=== PATIENT | male | born 1975 | race Native Hawaiian/Other Pacific Islander ===

== ENCOUNTER 2019-05-01 10:26 | Outpatient (CLI) | payer OTHER | END 2019-05-01 20:31 | disposition home or self-care (01) | LOC: MRI 10:26 | DX: M54.12 Radiculopathy, cervical region (principal) ==

== ENCOUNTER 2019-07-08 08:56 | Day surgery (SDC) | payer OTHER | END 2019-07-08 12:10 | disposition home or self-care (01) | LOC: OR 08:56 | PROC: 3E0R33Z Introduction of Anti-inflammatory into Spinal Canal, Percutaneous Approach (ICD-10-PCS; principal; 2019-07-08) | PROC: B01BYZZ Fluoroscopy of Spinal Cord using Other Contrast (ICD-10-PCS; 2019-07-08) | DX: M50.123 Cervical disc disorder at C6-C7 level with radiculopathy (principal) | CPT/HCPCS: J1020 ==

== ENCOUNTER 2019-08-05 08:05 | Day surgery (SDC) | payer OTHER | END 2019-08-05 09:10 | disposition home or self-care (01) | LOC: OR 08:05 | PROC: 3E0R33Z Introduction of Anti-inflammatory into Spinal Canal, Percutaneous Approach (ICD-10-PCS; principal; 2019-08-05) | PROC: B01BYZZ Fluoroscopy of Spinal Cord using Other Contrast (ICD-10-PCS; 2019-08-05) | DX: M50.123 Cervical disc disorder at C6-C7 level with radiculopathy (principal) | CPT/HCPCS: J1020 ==